=== PATIENT | male | born 1985 | race African-American/Black ===

== ENCOUNTER 2021-12-11 07:50 | Emergency (ER) | payer SELFPAY ==
[~2021-12-11] VITALS: Ht 177.8 cm; Wt 92.2 kg
--- NOTE | 2021-12-11 08:49 | RAD ---
AP chest. HISTORY: Palpitations, recent exposure to TB AP view was taken of the chest. There is no pleural effusion or pneumothorax. Heart is normal in size . There are no acute infiltrates. There is not radiographic evidence of active TB. IMPRESSION: 1. No acute chest disease. Electronically signed by: Sandro Doran MD (12/11/2021 8:46 AM) [facility]
[2021-12-11 09:00] VITALS: BP 116/60
--- NOTE | 2021-12-11 09:06 | PHYS DOC ---
Past Medical History Past Surgical History: No Surgical History Smoking Status: Never Smoker Alcohol Use: None Adult General Chief Complaint Chief Complaint: RAPID HEART RATE HPI HPI Patient is a 36 year old male who presents with palpitations and present for the last couple of days. Patient came in with an EKG from the outside clinic showed potential Iidnp-Kpccgrjal-Oeeom syndrome. He is very concerned about this and wants to be retested. He also is requesting a TB test. He is not had any lightheadedness or syncope. He has felt anxious for the last couple of days but denies any chest pain or dyspnea at this time. He does have some shortness of breath with exertion but it sounds like this is not new. Review of Systems Review of Systems Constitutional: Denies fever Eyes: Denies change in visual acuity or eye pain HENT: Denies sore throat Respiratory: Reports intermittent shortness of breath Cardiovascular: Denies chest pain GI: Denies abd pain : Denies dysuria Musculoskeletal: Denies back or extremity injury Integument: Denies rash or skin lesions Neurologic: Denies headache, focal weakness or sensory changes All other systems were reviewed and found to be within normal limits, except as documented in this note. Allergies Allergies Allergies Coded Allergies Type Severity Reaction Last Updated Verified No Known Drug Allergies 12/11/21 No Physical Exam Physical Exam Constitutional: Well developed, well nourished, no acute distress, non-toxic appearance. HENT: Normocephalic, atraumatic, bilateral external ears normal, mucosa moist, nose normal. Eyes: EOMI, conjunctiva normal, no discharge. Neck: Normal range of motion, supple, no stridor, no meningeal signs. Cardiovascular: Regular rate and rhythm Lungs & Thorax: Bilateral breath sounds clear to auscultation Abdomen: Soft, no tenderness or obvious masses Skin: Warm, dry, no erythema, no rash. Extremities: No tenderness, no cyanosis, no clubbing, ROM intact, no edema. Neurologic: Alert and oriented, normal motor function, normal sensory function, no focal deficits noted. Psychologic: Affect normal, judgement normal, mood normal. Current Patient Data Vital Signs Vital Signs Date Time Temp Pulse Resp B/P (MAP) Pulse Ox O2 Delivery O2 Flow Rate FiO2 12/11/21 08:14 98.0 84 16 133/7 (49) 98 98.0 EKG EKG [] Interpretation Time: Twelve-lead EKG demonstrates sinus rhythm with an overall rate of 84 bpm. RI, QRS and QT corrected intervals are within normal limits. No ST segment elevation or depression. Radiology/Procedures Radiology/Procedures [] Impressions: PATIENT: JOSIE JORGENSENCOUNT: [id number]#: [id number] : 1985 LOCATION: ER AGE: 36 SEX: M EXAM STATUS: REG ER ORD. PHYSICIAN: GIULIANO VALENCIA MD REASON: palpitations/recent exposure to TB PROCEDURE: CHEST AP ONLY AP chest. HISTORY: Palpitations, recent exposure to TB AP view was taken of the chest. There is no pleural effusion or pneumothorax. Heart is normal in size. There are no acute infiltrates. There is not radiographic evidence of active TB. IMPRESSION: 1. No acute chest disease. Electronically signed by: Anjana Bond MD (12/11/2021 8:46 AM) [facility] DICTATED and SIGNED BY: ANJANA BOND MD DATE: 12/11/21 0845 Course & Med Decision Making Course & Med Decision Making Pertinent Labs and Imaging studies reviewed. (See chart for details) [] This 36-year-old male who requested an EKG and a TB test essentially. We do not have a skin test but chest x-ray was negative for evidence of acute disease. EKG is negative for ischemia or evidence Ojirb-Kowlrwmzq-[id number]. Patient is discharged in stable condition. Dragon Disclaimer Dragon Disclaimer This electronic medical record was generated, in whole or in part, using a voice recognition dictation system. Departure Departure Impression: Primary Impression: Palpitations Disposition: 01 HOME / SELF CARE / HOMELESS Condition: STABLE Referrals: NO PCP (PCP) Patient Instructions: Palpitations, [id number]-[id number] GIULIANO VALENCIA MD Dec 11, 2021 09:06
--- NOTE | 2021-12-12 08:20 | EKG ---
[facility] [address] [place] [address] Test Date: 2021-12-11 Test Time: 08:12:15 Pat Name: JOSIE JORGENSEN Department: Room: Gender: M Bank Clerk: : 1985 Requested By: GIULIANO VALENCIA Order Number: [id number] Reading MD: Kingsley Hardy MD Measurements Intervals [place] Rate: 84 P: 66 NE: 148 QRS: 22 QRSD: 82 T: 11 QT: 376 QTc: 448 Interpretive Statements SINUS RHYTHM Electronically Signed On 12-13-2021 17:54:01 CDT by Kingsley Hardy MD
== END 2021-12-11 09:17 | disposition home or self-care (01) ==
LOC: ER 07:50
DX: R00.2 Palpitations (principal); R06.02 Shortness of breath
CPT/HCPCS: 71045; 93005; 99283